=== PATIENT | male | born 1985 | race Caucasian/White ===

== ENCOUNTER 2019-10-23 11:04 | Inpatient (IN) | payer SELFPAY ==
[2019-10-23 11:08] VITALS: BP 140/104; PULSE 111; RESP 18; TEMP 37.3; O2SAT 95; BMI 34.2
--- NOTE | 2019-10-23 11:09 | ED_ITS ---
Entered by Poly Long, acting as scribe for Mariposa Berry HPI - Nausea/Vomiting/Diarrhea General: Chief complaint: Nausea/Vomiting/Diarrhea Stated complaint: SICK, NAUSEA, VOMIT X 2 DAYS Time Seen by Provider: 10/23/19 11:06 Source: patient and EMS Mode of arrival: EMS Limitations: no limitations History of Present Illness: HPI Narrative: 34 yo Male presents to ED with complaint of nausea and vomiting x 2 days. Pt states that he has been feeling weak and lethargic as well. Pt states that he drank a couple shots of whiskey last night so that he could get some rest. Pt states that this morning he started throwing up brown emesis. Pt states that he is not an alcoholic and will go periods without drinking but when he does drink, he binge drinks. MD elicited complaint: nausea, vomiting and abdominal pain Onset (ago): day(s) Description of vomiting: other (brown) Associated nausea: Yes Associated abdominal pain: Yes Location of pain: Diffuse Quality: cramping Exacerbating factors: vomiting Relieving factors: none Associated symtoms: Reports fatigue, malaise and nausea; Denies altered mental status, change in vision, chest pain, dizziness, dysuria, fecal incontinence, headache(s), palpitations or syncope Review of Systems General: Reports: other (negative unless marked) Const: Reports: fatigue and malaise Eyes: Denies: change in vision or blurry vision ENMT: Denies: throat pain, painful swallowing, hoarseness, ear pain, ear discharge, Change in hearing or nasal discharge Card: Denies: chest pain, palpitations, irregular heart rhythm, syncope, pre- syncope, shortness of breath on exertion or shortness of breath when lying down Resp: Denies: shortness of breath, productive cough, non-productive cough, wheezing, coughing up blood or chest congestion GI: Reports: nausea; Denies: fecal incontinence : Denies: painful urination Musc: Denies: neck pain, back pain, extremity pain, extremity swelling, joint pain, joint swelling, joint warmth or joint stiffness Skin/Breast: Denies: rash, skin tenderness or yellow skin Neuro: Denies: headache, numbness in extremities, weakness in extremities, changes in sensation, lack of coordination, difficulty walking, dizziness, vertigo or confusion Endo: Denies: excessive thirst, tired all the time, cold intolerance, excessive sweating, flushing or hot flashes Noah/Lymph: Denies: easy bruising, easy bleeding, petechiae or enlarged lymph nodes All/Imm: Denies: hives, throat swelling, tongue swelling, facial swelling or acute wheezing PFSH ED PFSH: Social History Smoking and tobacco status: current every day smoker cigarettes Packs smoked per day: 1 Years cigarettes smoked: 22 and smokeless tobacco Smokeless tobacco user: snuff Second hand smoke exposure: Yes Alcohol intake: current Alcohol intake frequency: 3 or more drinks per day Alcohol type: beer and hard liquor Lives independently: Yes Marital status: Current occupational status: student History of recent travel: No Current gender identity: Male Physical Exam Const: COMMON NORMALS: no apparent distress, oriented x3, no limitations, healthy appearing and well nourished EXAM LIMITATIONS: no altered mental status GENERAL APPEARANCE: cooperative, well kempt and well developed ORIENTATION/CONSCIOUSNESS: Yes awake HENMT: COMMON NORMALS: normocephalic, head/scalp atraumatic, hearing grossly normal bilaterally, external ears normal, EAC's normal, external nose normal and moist oral mucous membranes HEAD & SCALP: normal to inspection, normocephalic and atraumatic FACE & SINUS: normal facial exam and face symmetric NOSE: external nose normal and nares normal EXTERNAL EAR: Yes external ears normal EXTERNAL AUDITORY CANAL: EAC's normal MOUTH: oral and palatal mucosa normal and tongue normal Eye: COMMON NORMALS: PERRL, EOMs intact bilaterally, conjunctivae normal and no scleral icterus GENERAL EYE: normal appearance of both eyes and normal li ght reflex CONJUNCTIVA: Yes conjunctivae normal SCLERA: sclerae normal CORNEA: Yes corneas normal PUPIL: Yes PERRL DIRECT OPHTHALMOSCOPY: Yes normal light reflex Neck/C-Spine: COMMON NORMALS: full ROM, no lymphadenopathy, supple, no meningeal signs and no JVD GENERAL: Yes normal visual inspection and Yes trachea midline CERVICAL SPINE: Yes cervical ROM normal Chest: COMMONS NORMALS: inspection of chest normal and palpation of chest normal Resp: COMMON NORMALS: normal respiratory effort, no retractions, no use of accessory muscles and clear to auscultation bilaterally EFFORT & INSPECTION: Yes able to speak in complete sentences AUSCULTATION: clear to auscultation bilaterally Cardio: COMMON NORMALS: no JVD, regular rate, regular rhythm, S1 normal heart sound, S2 normal heart sound, no gallops, no clicks, no murmurs and no rub JUGULAR VENOUS DISTENTION: no JVD RATE: regular rate RHYTHM: regular rhythm HEART SOUNDS: S1 normal and S2 normal GI: COMMON NORMALS: soft to palpation, non-tender, no hepatosplenomegaly and no masses INSPECTION: Yes normal to inspection PALPATION: Yes soft and Yes no hepatosplenomegaly : COMMON NORMALS: Yes no CVA tenderness BLADDER/KIDNEY EXAM: Yes no CVA tenderness Back/Pelvis: COMMON NORMALS: no CVA tenderness, thoracic and lumbar spine normal to inspection, no thoracic nor lumbar tenderness and thoraco-lumbar ROM normal Extremity: COMMON NORMALS: normal to inspection, full ROM, normal capillary refill, no joint enlargement, no clubbing, cyanosis or edema and no calf tenderness Neuro: COMMON NORMALS: oriented x3, CN's II-XII intact bilaterally, moves all extremities, no focal motor deficits and no sensory deficits noted MENINGEAL SIGNS: Yes no meningeal signs Psych: COMMON NORMALS: mental status grossly normal, thought process normal, cooperative, affect normal, speech normal and activity/motor behavior normal APPEARANCE: Yes well kempt SPEECH: Yes normal speech THOUGHT PROCESS: normal thought process Skin: COMMON NORMALS: no rashes or lesions noted, skin turgor normal, no jaundice, no petechiae and no mottling GENERAL SKIN EXAM: no rashes or lesions noted and turgor normal Course Vital Signs: Vital signs: Vital Signs Temperature 99.2 F 10/23/19 11:08 Pulse Rate 111 H 10/23/19 11:08 Respiratory Rate 18 10/23/19 11:08 Blood Pressure 140/104 10/23/19 11:08 Pulse Oximetry 95 10/23/19 11:08 MDM - Nausea/Vomiting/Diarrhea MDM Narrative: Medical decision making narrative: Mr. Shelton is a 34-year-old male who is a binge drinker. He comes in with mild hematemesis. I believe this is likely due to a alcoholic gastritis. His hemoglobin is stable and his blood pressure is normal. He is not tachycardic. I reviewed the case in full with Dr. Ortega and he is agreeable to admission and we have consulted Dr. Baez's. They both agree he is stable for the floor. Lab Data: Attestation: I reviewed the patient's lab results. Labs: Lab Results 10/23/19 10/23/19 10/23/19 Range/Units 11:38 11:38 11:38 WBC 11.8 H (4.0-10.0) 10^3/ uL RBC 5.61 H (4.1-5.3) 10^6/u L Hgb 15.2 (11.7-16.6) g/dL Hct 46.6 (42.0-52.0) % MCV 83.1 (80-94) fL MCH 27.1 L (28.0-34.0) pg MCHC 32.6 (30.0-36.0) g/dL RDW 13.7 (12.1-15.1) % Plt Count 384 (130-400) 10^3/c mm MPV 10.0 (7.4-10.4) fL Neut % (Auto) 78.7 % Lymph % (Auto) 14.5 % Butts % (Auto) 6.0 % Eos % (Auto) 0.2 % Baso % (Auto) 0.3 % Neut # (Auto) 9.3 H (1.8-7.7) 10^3/u L Lymph # (Auto) 1.7 (0.8-4.8) 10^3/u L Butts # (Auto) 0.7 (0.2-0.9) 10^3/u L Eos # (Auto) 0.0 (0.0-0.8) 10^3/u L Baso # (Auto) 0.0 (0.0-0.1) 10^3/u L Nucleated RBC % (a uto) 0 % Nucleated RBCs # 0.0 /100WBC PT 13.50 H (10.5-13.3) SECO NDS INR 1.00 (0.8-1.2) APTT 27.7 (23.9-36.7) SECO NDS Specimen Type Sample Site ABG pH (7.35-7.45) ABG pCO2 (35-45) mmHg ABG pO2 (80.0-100.0) mmH g ABG HCO3 (22-26) mmol/L ABG Base Excess (-2.0-2.0) mmol/ L Oj Test Hematocrit (42-52) % O2 Delivery Device FiO2 % [employer] Developer ID Sodium 138 (136-145) mmol/L Potassium 4.0 (3.5-5.1) mmol/L Chloride 90 L (98-107) mmol/L Carbon Dioxide 21 L (22-29) mmol/L Anion Gap 31.0 H (5-19) BUN 16 (6-20) mg/dL Creatinine 1.1 (0.7-1.2) mg/dL GFR Calculation 76.6 L (90-130) mL/min Glucose 151 H (65-115) mg/dL Calculated Osmolal ity 285 (285-295) mOsm/k g Calcium 10.8 H (8.5-10.5) mg/dL Magnesium 2.5 H (1.7-2.3) mg/dL Total Bilirubin 0.5 (0.15-1.2) mg/dL AST 29 (0-40) U/L ALT 30 (0-41) U/L Alkaline Phosphata se 139 H (40-130) IU/L Creatine Kinase 203 (39-308) U/L Total Protein 9.3 H (6.6-8.7) g/dL Albumin 5.3 H (3.5-5.2) g/dL Globulin 4.0 (1.3-4.6) g/dL Lipase 44 (13-60) U/L Urine Color (Yellow) Urine Appearance (CLEAR) Urine pH (5-7) Ur Specific Gravit y (1.005-1.030) Urine Protein (Negative) Urine Glucose (UA) (Normal) Urine Ketones (Negative) Urine Blood (Negative) Urine Nitrate (Negative) Urine Bilirubin (NEGATIVE) Urine Urobilinogen (Negative) mg/dL Ur Leukocyte Yvonne ase (Negative) Urine RBC (0-2) /hpf Urine WBC (0-5) /hpf Ur Squamous Epith Cells (0-5) Other Crystals /hpf Urine Bacteria (NONE) Hyaline Casts Salicylates (3-10) mg/dL Urine Opiates Scre en (Negative) ng/mL Acetaminophen (10-30) ug/mL Ur Barbiturates Sc reen (Negative) ng/mL Ur Phencyclidine S crn (Negative) ng/mL Ur Amphetamines Sc reen (Negative) ng/mL U Benzodiazepines Scrn (Negative) ng/mL Urine Cocaine Scre en (Negative) ng/mL U Marijuana (THC) Screen (Negative) ng/mL Ethyl Alcohol 162 H (0-10) mg/dL Serum Ketones (Negative) 10/23/19 10/23/19 10/23/19 Range/Units 11:38 11:38 12:44 WBC (4.0-10.0) 10^3/ uL RBC (4.1-5.3) 10^6/u L Hgb (11.7-16.6) g/dL Hct (42.0-52.0) % MCV (80-94) fL MCH (28.0-34.0) pg MCHC (30.0-36.0) g/dL RDW (12.1-15.1) % Plt Count (130-400) 10^3/c mm MPV (7.4-10.4) fL Neut % (Auto) % Lymph % (Auto) % Butts % (Auto) % Eos % (Auto) % Baso % (Auto) % Neut # (Auto) (1.8-7.7) 10^3/u L Lymph # (Auto) (0.8-4.8) 10^3/u L Butts # (Auto) (0.2-0.9) 10^3/u L Eos # (Auto) (0.0-0.8) 10^3/u L Baso # (Auto) (0.0-0.1) 10^3/u L Nucleated RBC % (a uto) % Nucleated RBCs # /100WBC PT (10.5-13.3) SECO NDS INR (0.8-1.2) APTT (23.9-36.7) SECO NDS Specimen Type Arterial Sample Site Radial, right ABG pH 7.46 H (7.35-7.45) ABG pCO2 32.3 L (35-45) mmHg ABG pO2 81.0 (80.0-100.0) mmH g ABG HCO3 22.7 (22-26) mmol/L ABG Base Excess -0.4 (-2.0-2.0) mmol/ L Oj Test Pos Hematocrit 46.8 (42-52) % O2 Delivery Device Room air FiO2 21.0 % [employer] Developer ID [email or web address] Sodium (136-145) mmol/L Potassium (3.5-5.1) mmol/L Chloride (98-107) mmol/L Carbon Dioxide (22-29) mmol/L Anion Gap (5-19) BUN (6-20) mg/dL Creatinine (0.7-1.2) mg/dL GFR Calculation (90-130) mL/min Glucose (65-115) mg/dL Calculated Osmolal ity (285-295) mOsm/k g Calcium (8.5-10.5) mg/dL Magnesium (1.7-2.3) mg/dL Total Bilirubin (0.15-1.2) mg/dL AST (0-40) U/L ALT (0-41) U/L Alkaline Phosphata se (40-130) IU/L Creatine Kinase (39-308) U/L Total Protein (6.6-8.7) g/dL Albumin (3.5-5.2) g/dL Globulin (1.3-4.6) g/dL Lipase (13-60) U/L Urine Color (Yellow) Urine Appearance (CLEAR) Urine pH (5-7) Ur Specific Gravit y (1.005-1.030) Urine Protein (Negative) Urine Glucose (UA) (Normal) Urine Ketones (Negative) Urine Blood (Negative) Urine Nitrate (Negative) Urine Bilirubin (NEGATIVE) Urine Urobilinogen (Negative) mg/dL Ur Leukocyte Yvonne ase (Negative) Urine RBC (0-2) /hpf Urine WBC (0-5) /hpf Ur Squamous Epith Cells (0-5) Other Crystals /hpf Urine Bacteria (NONE) Hyaline Casts Salicylates < 0.3 L (3-10) mg/dL Urine Opiates Scre en (Negative) ng/mL Acetaminophen < 5.0 L (10-30) ug/mL Ur Barbiturates Sc reen (Negative) ng/mL Ur Phencyclidine S crn (Negative) ng/mL Ur Amphetamines Sc reen (Negative) ng/mL U Benzodiazepines Scrn (Negative) ng/mL Urine Cocaine Scre en (Negative) ng/mL U Marijuana (THC) Screen (Negative) ng/mL Ethyl Alcohol (0-10) mg/dL Serum Ketones Negative (Negative) 10/23/19 10/23/19 Range/Units 13:40 13:40 WBC (4.0-10.0) 10^3/ uL RBC (4.1-5.3) 10^6/u L Hgb (11.7-16.6) g/dL Hct (42.0-52.0) % MCV (80-94) fL MCH (28.0-34.0) pg MCHC (30.0-36.0) g/dL RDW (12.1-15.1) % Plt Count (130-400) 10^3/c mm MPV (7.4-10.4) fL Neut % (Auto) % Lymph % (Auto) % Butts % (Auto) % Eos % (Auto) % Baso % (Auto) % Neut # (Auto) (1.8-7.7) 10^3/u L Lymph # (Auto) (0.8-4.8) 10^3/u L Butts # (Auto) (0.2-0.9) 10^3/u L Eos # (Auto) (0.0-0.8) 10^3/u L Baso # (Auto) (0.0-0.1) 10^3/u L Nucleated RBC % (a uto) % Nucleated RBCs # /100WBC PT (10.5-13.3) SECO NDS INR (0.8-1.2) APTT (23.9-36.7) SECO NDS Specimen Type Sample Site ABG pH (7.35-7.45) ABG pCO2 (35-45) mmHg ABG pO2 (80.0-100.0) mmH g ABG HCO3 (22-26) mmol/L ABG Base Excess (-2.0-2.0) mmol/ L Oj Test Hematocrit (42-52) % O2 Delivery Device FiO2 % [employer] Developer ID Sodium (136-145) mmol/L Potassium (3.5-5.1) mmol/L Chloride (98-107) mmol/L Carbon Dioxide (22-29) mmol/L Anion Gap (5-19) BUN (6-20) mg/dL Creatinine (0.7-1.2) mg/dL GFR Calculation (90-130) mL/min Glucose (65-115) mg/dL Calculated Osmolal ity (285-295) mOsm/k g Calcium (8.5-10.5) mg/dL Magnesium (1.7-2.3) mg/dL Total Bilirubin (0.15-1.2) mg/dL AST (0-40) U/L ALT (0-41) U/L Alkaline Phosphata se (40-130) IU/L Creatine Kinase (39-308) U/L Total Protein (6.6-8.7) g/dL Albumin (3.5-5.2) g/dL Globulin (1.3-4.6) g/dL Lipase (13-60) U/L Urine Color Yellow (Yellow) Urine Appearance Hazy A (CLEAR) Urine pH 5 (5-7) Ur Specific Gravit y 1.010 (1.005-1.030) Urine Protein 2+ H (Negative) Urine Glucose (UA) Norm (Normal) Urine Ketones 1+ H (Negative) Urine Blood Neg (Negative) Urine Nitrate Negative (Negative) Urine Bilirubin Neg (NEGATIVE) Urine Urobilinogen Norm (Negative) mg/dL Ur Leukocyte Yvonne ase Negative (Negative) Urine RBC None (0-2) /hpf Urine WBC None (0-5) /hpf Ur Squamous Epith Cells 0-4 H (0-5) Other Crystals Amm biurate /hpf Urine Bacteria 1+ H (NONE) Hyaline Casts 0-4 H Salicylates (3-10) mg/dL Urine Opiates Scre en Negative (Negative) ng/mL Acetaminophen (10-30) ug/mL Ur Barbiturates Sc reen Negative (Negative) ng/mL Ur Phencyclidine S crn Negative (Negative) ng/mL Ur Amphetamines Sc reen Negative (Negative) ng/mL U Benzodiazepines Scrn Negative (Negative) ng/mL Urine Cocaine Scre en Negative (Negative) ng/mL U Marijuana (THC) Screen Negative (Negative) ng/mL Ethyl Alcohol (0-10) mg/dL Serum Ketones (Negative) Imaging Data^: CT Abd/Pel: Radiologist's impression: [address] [address] [address] Scan Report Signed Patient: Dexter Shelton #: [id number] : 1985Acct#:[id number] Age/Sex: 34 / MADM Date: 10/23/19 Loc: ERRoom/Bed: Attending Dr: Ordering Provider/Ordering MD: Mariposa Berry DO Date of Service: 10/23/19 Procedure(s): CT abdomen pelvis w con* [id number] Accession Number(s): [id number] Report Number: [id number] WS: [id number] CT scan of the abdomen and pelvis with IV contrast. Additional two-dimensional coronal and sagittal reconstruction was performed. 10/23/2019 Clinical Data: Abdominal Pain Comparison: None. DLP: 1534.[address] scans at [facility] use at least one of these dose optimization techniques: automated exposure control; mA and/or kV adjustment per patient size (includes targeted exams where dose is matched to clinical indication); or iterative reconstruction. Findings: The lower lungs show no nodules, masses or effusions. There is a small hiatal hernia. The gallbladder, spleen, adrenal glands and pancreas are normal. There is fatty infiltration of the liver. The kidneys show equal bilateral contrast excretion with a small right intrarenal cyst. No masses, hydronephrosis or renal calculi are seen.. The abdominal aorta is normal in size. No appendicitis or diverticulitis is seen. The stomach, small bowel and colon are unremarkable. No abscess, adenopathy, ascites, mass, obstruction or free air is seen. The bladder is unremarkable. No inguinal hernia is seen. The bones of the lower thorax, lumbar spine, pelvis, and hips are normal. CT/CT abdomen pelvis w con* [id number] Impression: Negative for acute intra-abdominal or pelvic abnormalities. Dictated By:Vivian Stiles MD Signed By:Vivian Stiles MDSigned Date/Time:10/23/19 1212 DD/ 1207 EKG Data^: EKG 1: Attestation: I personally reviewed and interpreted this EKG as follows: EKG interpretation date: 10/23/19 EKG interpretation time: 11:36 Interpretation: Normal sinus rhythm with a ventricular rate of 113, normal axis, no blocks, normal intervals, no acute ST or T wave changes. Discharge Plan Discharge Patient Disposition: Placed in Observation Clinical Impression: Alcohol abuse, Vomiting of blood, Abdominal pain Condition: Stable Prescriptions: No Action sertraline [Zoloft] 100 mg tablet 100 mg PO DAILY RF: 0 lisinopril 10 mg tablet 10 mg PO DAILY RF: 0 buspirone 10 mg tablet 10 mg PO BID PRN (Reason: Anxiety) RF: 0 omeprazole 20 mg capsule,delayed release(DR/EC) 20 mg PO DAILY RF: 0 albuterol sulfate [ProAir HFA] 90 mcg/actuation HFA aerosol inhaler 2 inh INHALATION Q6H PRN (Reason: Shortness Of Breath) RF: 0 Coding Level of Care Code ED Manager Wound for Chg Fwd Exam Comprehensive The documentation recorded by the Ethan joyner Carmen, accurately reflects the service I personally performed and the decisions made by Jamal vazquez Eli N
--- NOTE | 2019-10-23 11:12 | CT_ITS ---
WS: [id number] CT scan of the abdomen and pelvis with IV contrast. Additional two-dimensional coronal and sagittal reconstruction was performed. 10/23/2019 Clinical Data: Abdominal Pain Comparison: None. DLP: 1534.[address] scans at [facility] use at least one of these dose optimization techniques: automat ed exposure control; mA and/or kV adjustment per patient size (includes targeted exams where dose is matched to clinical indication); or iterative reconstruction. Findings: The lower lungs show no nodules, masses or effusions. There is a small hiatal hernia. The gallbladder, spleen, adrenal glands and pancreas are normal. There is fatty infiltration of the l iver. The kidneys show equal bilateral contrast excretion with a small right intrarenal cyst. No masses, hy dronephrosis or renal calculi are seen.. The abdominal aorta is normal in size. No appendicitis or diverticulitis is seen. The stomach, small bowel and colon are unremarkable. No ab scess, adenopathy, ascites, mass, obstruction or free air is seen. The bladder is unremarkable. No inguinal hernia is seen. The bones of the lower thorax, lumbar spine, pelvis, and hips are normal. CT/CT abdomen pelvis w con* [id number] Impression: Negative for acute intra-abdominal or pelvic abnormalities.
--- NOTE | 2019-10-23 11:14 | ECG_ITS ---
Measurements Intervals [place] Rate: 113 P: 73 NC: 129 QRS: 66 QRSD: 105 T: 64 QT: 358 QTc: 493 SINUS TACHYCARDIA ABNORMAL RHYTHM ECG No previous ECG available for comparison Electronically Signed On 10-24-2019 9:00:37 CDT by Juan Francisco Maritnez M.D. [email or web address]
[2019-10-23] MEDS: sodium chloride 0.9% 1,000 ML 999 ML IV (11:43)
[2019-10-23] MEDS: pantoprazole 40 mg SDV 80 MG IVP (11:44)
[2019-10-23] MEDS: ondansetron 2 mg/ML SDV 2 mL 8 MG IVP (11:44)
[2019-10-23] MEDS: pantoprazole 40 MG in sodium chloride 0.9% (plus) 100 ML 20 MG IV (11:46)
--- NOTE | 2019-10-23 11:50 | PC.NURSE ---
Physician requested to have the patients vomit tested for occult blood. test came back positive.
[2019-10-23 11:51] LABS: Basophils % 0.3 %; Eosinophils % 0.2 %; Hematocrit 46.6 % (42.0-52.0); Hemoglobin 15.2 g/dL (11.7-16.6); Lymphocytes # 1.7 10^3/uL (0.8-4.8); Lymphocytes % 14.5 %; Mean Corpuscular HGB Conc 32.6 g/dL (30.0-36.0); Mean Corpuscular Hemoglobin 27.1 pg (28.0-34.0); Mean Corpuscular Volume 83.1 fL (80-94); Monocytes # 0.7 10^3/uL (0.2-0.9); Neutrophils # 9.3 10^3/uL (1.8-7.7); Neutrophils % 78.7 %; Nucleated Red Blood Cells % 0 %; Platelet Count 384 10^3/cmm (130-400); Red Blood Count 5.61 10^6/uL (4.1-5.3); Red Cell Distribution Width 13.7 % (12.1-15.1); White Blood Count 11.8 10^3/uL (4.0-10.0)
[2019-10-23 11:54] LABS: Partial Thromboplastin Time 27.7 SECONDS (23.9-36.7)
[2019-10-23] MEDS: iohexol 300 mg/mL 100 mL Btl IV (11:56)
[2019-10-23 11:59] LABS: Alanine Aminotransferase 30 U/L (0-41); Albumin Level 5.3 g/dL (3.5-5.2); Alcohol Level 162 mg/dL (0-10); Alkaline Phosphatase 139 IU/L (40-130); Aspartate Amino Transferase 29 U/L (0-40); Blood Urea Nitrogen 16 mg/dL (6-20); Calcium 10.8 mg/dL (8.5-10.5); Carbon Dioxide 21 mmol/L (22-29); Chloride 90 mmol/L (98-107); Creatine Phosphokinase 203 U/L (39-308); Glomerular Filtration Rate 76.6 mL/min (90-130); Glucose 151 mg/dL (65-115); Lipase 44 U/L (13-60); Magnesium 2.5 mg/dL (1.7-2.3); Osmolality Calculated 285 mOsm/kg (285-295); Sodium 138 mmol/L (136-145); Total Bilirubin 0.5 mg/dL (0.15-1.2); Total Protein 9.3 g/dL (6.6-8.7)
[2019-10-23 12:23] LABS: Ketone (Acetest) Serum Negative (Negative)
[2019-10-23 12:43] LABS: Acetaminophen < 5.0 ug/mL (10-30); Salicylate < 0.3 mg/dL (3-10)
[2019-10-23 12:55] LABS: ABG PCO2 32.3 mmHg (35-45); ABG PH Result 7.46 (7.35-7.45); Arterial Blood Gas Hematocrit 46.8 % (42-52); Base Excess ABG -0.4 mmol/L (-2.0-2.0); Blood Gas Allen Test Pos; Blood Gas Operator Identificat amh; Blood Gas Sample Site Radial, right; Blood Gas Sample Type Arterial; HCO3 ABG 22.7 mmol/L (22-26); Oxygen Device ROOM AIR
[2019-10-23 14:13] LABS: Bilirubin Urine Neg (NEGATIVE); Blood Urine Neg (Negative); Glucose Urine UA Norm (Normal); Ketones Urine 1+ (Negative); Leukocyte Esterase Urine Negative (Negative); Nitrate Urine Negative (Negative); Protein Urine 2+ (Negative); Urine Appearance Hazy (CLEAR); Urine Color Yellow (Yellow); Urobilinogen Urine Norm (Negative); pH Urine 5 (5-7)
[2019-10-23 14:20] LABS: Bacteria Urine 1+; Other Crystals Urine AMM BIURATE /hpf; Squamous Epithelial Cell Urine 0-4 (0-5)
[2019-10-23 14:21] LABS: Add Urine Culture? No; Hyaline Casts Urine 0-4
[2019-10-23 14:22] LABS: Amphetamines Screen Urine Negative (Negative); Barbiturates Screen Urine Negative (Negative); Benzodiazepines Screen Urine Negative (Negative); Cocaine Screen Urine Negative (Negative); Opiate Screen Urine Negative (Negative); PCP Screen Urine Negative (Negative); THC Screen Urine Negative (Negative)
[2019-10-23] MEDS: LORazepam 2 mg/mL INJ 1 mL 1 MG IVP (14:23)
[2019-10-23 14:44] VITALS: BP 133/63; PULSE 88; RESP 18; O2SAT 100
--- NOTE | 2019-10-23 15:42 | P.CONIM_ITS ---
Providers/Reason For Consult Consulting Physican/Specialty*: Dr. Juarez General surgery Reason for Consult*: Hematemesis Attending Physician: Carrington Schaffer History of Present Illness History of Present Illness Lan Shelton is a 34 year old male apparently the patient has been vomiting over the past couple of days and allegedly there was blood in his vomitus patient is not sure, admits that he has been drinking a lot of alcohol over the past few days he was seen and evaluated by his nurse practitioner and was sent to the emergency department for further evaluation. He denies previous episodes or previous endoscopies and he said that he does not drink alcohol this is just recently that he has been starting to drink General surgery was consulted for further evaluation A CT scan of the abdomen and pelvis was done in the ER that showed: Negative for acute intra-abdominal or pelvic abnormalities. Review of Systems Const: Denies: fever, chills, body aches or malaise Card: Denies: chest pain Resp: Denies: shortness of breath GI: Denies: abdominal pain, nausea, vomiting, difficulty swallowing, diarrhea, constipation or blood in stool Neuro: Denies: headache Psych: Denies: anxiety or depression Meds/Allergies Home Medications and Allergies Home Medications Medication Instructions Recorded Confirmed Type albuterol sulfate 90 mcg/actuation 2 inh INHALATION Q4H PRN gm 10/23/19 10/23/19 History aerosol inhaler bismuth subsalicylate See Rx Instructions .ROUTE .COMPLEX 10/23/19 10/23/19 History [Pepto-Bismol To-Go] buspirone 10 mg tablet 10 mg PO BID PRN 10/23/19 10/23/19 History lisinopril 10 mg tablet 10 mg PO DAILY 10/23/19 10/23/19 History multivitamin [Multiple Vitamins] 1 tab PO DAILY 10/23/19 10/23/19 History naltrexone 50 mg PO DAILY 10/23/19 10/23/19 History omeprazole 20 mg capsule,delayed 20 mg PO DAILY 10/23/19 10/23/19 History release perphenazine 12 mg PO BEDTIME 10/23/19 10/23/19 History sertraline 100 mg tablet 100 mg PO DAILY 10/23/19 10/23/19 History Allergies Allergy/AdvReac Type Severity Reaction Status Date / Time Penicillins Allergy Unknown Verified 10/23/19 15:44 Current Medications Current Medications Generic Name Dose Route Start Last Admin Trade Name Freq PRN Reason Stop Dose Admin Pantoprazole Sodium 40 mg/ 100 mls @ 20 mls/hr 10/23/19 11:12 10/23/19 11:46 Sodium Chloride IV 10/23/19 16:11 8 mg/hr .Q5H ONE 20 mls/hr Administration 8 MG/HR PFSH Acute PFSH: Medical History (Updated 10/23/19 @ 16:32 by Carrington Schaffer MD) Anxiety and depression Asthma GERD (gastroesophageal reflux disease) Hypertension Surgical History No history of previous surgery Family History Other Healthy adult Social History Smoking and tobacco status: current every day smoker cigarettes Packs smoked per day: 1 Years cigarettes smoked: 22 and smokeless tobacco Smokeless tobacco user: snuff Second hand smoke exposure: Yes Alcohol intake: current Alcohol intake frequency: 3 or more drinks per day Alcohol type: beer and hard liquor Lives independently: Yes Marital status: Current occupational status: student History of recent travel: No Current gender identity: Male Vitals/I&O/Wt Last Vital Signs Temp 99.2 F 10/23/19 11:08 Pulse 88 10/23/19 14:44 Resp 18 10/23/19 14:44 BP 133/63 10/23/19 14:44 Pulse Ox 100 10/23/19 14:44 Weight last 48 hrs Weight 225 lb Physical Exam Const: COMMON NORMALS: no apparent distress and oriented x3 GENERAL APPEARANCE: cooperative ORIENTATION/CONSCIOUSNESS: Yes awake, Yes oriented to person, Yes oriented to place and Yes oriented to time HENMT: COMMON NORMALS: normocephalic HEAD & SCALP: normocephalic Eye: COMMON NORMALS: PERRL and no scleral icterus PUPIL: Yes PERRL Lymph: LYMPHATIC: no lymphadenopathy noted Chest: COMMONS NORMALS: inspection of chest normal Resp: COMMON NORMALS: normal respiratory effort and clear to auscultation bilaterally AUSCULTATION: clear to auscultation bilaterally Cardio: COMMON NORMALS: S1 normal heart sound and S2 normal heart sound; negative for no murmurs HEART SOUNDS: S1 normal and S2 normal GI: COMMON NORMALS: soft to palpation; negative for no hepatosplenomegaly INSPECTION: Yes normal to inspection PALPATION: Yes soft, No firm, No tender, No guarding, No rigid and No no hepatosplenomegaly Neuro: COMMON NORMALS: oriented x3 SENSORIUM/ORIENTATION: Yes oriented to person, Yes oriented to place and Yes oriented to time Skin: COMMON NORMALS: no rashes or lesions noted GENERAL SKIN EXAM: no rashes or lesions noted A&P Assessment and plan (1) Vomiting of blood: Plan of care; After thorough history and physical examination and reviewing the chart, plan to perform a diagnostic esophagogastroduodenoscopy and possible biopsy in the GI lab. Informed consent per chart were,Indications, risks, benefits, and alternatives were all discussed with the patient and did agree to proceed. Patient can have clear liquid diet now and n.p.o. after midnight Status: Acute Qualifiers: Nausea presence: with nausea Qualified Code(s): K92.0 - Hematemesis Code(s): K92.0 - Hematemesis Consult Attestations Medical Necessity Statement: Per hospitalist service Time Spent in Patient Care: 16 - 35 minutes (>than 50% of time spent in counselling and/or direct pt care on unit) . Coding Level of Care Code Acute Facing Baster for g Fwd Exam Comprehensive Diagnoses Vomiting of blood K92.0 Nausea presence: with nausea
--- NOTE | 2019-10-23 15:55 | P.PN_ITS ---
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
[2019-10-23 16:00] VITALS: BP 154/77; PULSE 106; RESP 20; TEMP 36.7; O2SAT 94
--- NOTE | 2019-10-23 16:05 | P.HP_ITS ---
Providers/Chief Complaint Admitting Physician: Carrington Schaffer Chief Complaint: SICK, NAUSEA, VOMIT X 2 DAYS History of Present Illness Lan Shelton is a 34 year old male with history of longstanding GERD, with EGD about 3 years ago, with binge drinking, current smoker of 1 pack/day, but denies history of cirrhosis, or varices seen on EGD, presented to the emergency department due to recurrent episodes of vomiting since last night, and says has vomited multiple times, including this morning in ER with streaks of blood seen in the vomitus. No blood present in first emesis episode, and he denies coffee- ground contents. His hemoglobin is 15. He denies hematochezia or melanotic stools. In ER he is also noted to have withdrawal from alcohol. Last drink was yesterday, and he does say that he had purchased 30 pack and half a gallon of liquor, although says did not finish everything. He gives history of drinking large amounts mostly on weekends. He does report history of alcohol withdrawal which was severe with hallucinations suspicious for DT. He is currently somewhat anxious, tremulous, when he closes his eyes he does have some strange visual symptoms, but denies alex hallucinations. Denies history of seizure. CT abdomen pelvis in ER unremarkable. Review of Systems Const: Denies: fever, chills, body aches or malaise Eyes: Denies: change in vision or eye redness ENMT: Denies: throat pain, oral sores/lesions or ear pain Card: Denies: chest pain, edema, pre-syncope or shortness of breath on exertion Resp: Denies: shortness of breath, productive cough, change in phlegm color or coughing up blood GI: Reports: nausea and vomiting; Denies: abdominal pain, diarrhea, constipation, blood in stool or black tarry stool : Denies: flank pain, difficulty urinating, urinary frequency or blood in urine Musc: Denies: back pain, joint swelling or redness Skin/Breast: Denies: rash, sores or new lesion Neuro: Denies: headache, numbness in extremities, weakness in extremities, dizziness, confusion or seizure-like activity Psych: Reports: anxiety Endo: Denies: excessive urination or excessive thirst Noah/Lymph: Denies: easy bleeding or purpura All/Imm: Denies: hives, throat swelling or tongue swelling Medications/Allergies Home Medications Medication Instructions Recorded Confirmed Last Taken Type bismuth subsalicylate See Rx Instructions .ROUTE .COMPLEX 10/23/19 10/23/19 10/22/19 History [Pepto-Bismol To-Go] multivitamin [Multiple Vitamins] 1 tab PO DAILY 10/23/19 10/23/19 10/20/19 H istory naltrexone 50 mg PO DAILY 10/23/19 10/23/19 Unknown History perphenazine 12 mg PO BEDTIME 10/23/19 10/23/19 Unknown History Allergies Allergy/AdvReac Type Severity Reaction Status Date / Time Penicillins Allergy Unknown Verified 10/23/19 15:44 PFSH Acute PFSH: Medical History (Updated 10/23/19 @ 16:32 by Carrington Schaffer MD) Anxiety and depression Asthma GERD (gastroesophageal reflux disease) Hypertension Surgical History No history of previous surgery Family History Other Healthy adult Social History Smoking and tobacco status: current every day smoker cigarettes Packs smoked per day: 1 Years cigarettes smoked: 22 and smokeless tobacco Smokeless tobacco user: snuff Second hand smoke exposure: Yes Alcohol intake: current Alcohol intake frequency: 3 or more drinks per day Alcohol type: beer and hard liquor Lives independently: Yes Marital status: Current occupational status: student History of recent travel: No Current gender identity: Male Vitals/I&O/Wt Last Vital Signs Temp 99.2 F 10/23/19 11:08 Pulse 88 10/23/19 14:44 Resp 18 10/23/19 14:44 BP 133/63 10/23/19 14:44 Pulse Ox 100 10/23/19 14:44 Weight last 48 hrs Weight 102.058 kg Physical Exam Const: COMMON NORMALS: no apparent distress and oriented x3 GENERAL APPEARANCE: anxious (But pleasant and cooperative. Lucid.) OTHER: With mild resting tremor. HENMT: COMMON NORMALS: oropharynx normal Neck/C-Spine: COMMON NORMALS: no JVD Resp: COMMON NORMALS: normal respiratory effort and clear to auscultation bilaterally AUSCULTATION: clear to auscultation bilaterally Cardio: COMMON NORMALS: no JVD, regular rhythm, S1 normal heart sound, S2 normal heart sound and no murmurs RHYTHM: regular rhythm HEART SOUNDS: S1 normal and S2 normal GI: COMMON NORMALS: normal to inspection, nondistended, normoactive bowel sounds, soft to palpation and non-tender PALPATION: Yes soft Extremity: COMMON NORMALS: no joint enlargement and no pedal edema Neuro: COMMON NORMALS: oriented x3 and moves all extremities Skin: COMMON NORMALS: no rashes or lesions noted GENERAL SKIN EXAM: no rashes or lesions noted Data : 10/23/19 11:38 10/23/19 11:38 A&P Assessment and plan (1) Vomiting of blood: Suspected alcohol induced gastritis with vomiting. Noted blood in vomitus, with history of long standing GERD, but denies varices on past EGD. Is a current smoker. Denies NSAIDs. Discussed with him regarding concern of alcohl consumption as well as smoking leading to recurrence of symptoms and risk of malignancy. He verbalized understanding. PPI IV. Bowel rest. Appreciate surgery recommendations. Status: Acute Qualifiers: Nausea presence: with nausea Qualified Code(s): K92.0 - Hematemesis Code(s): K92.0 - Hematemesis (2) Alcohol withdrawal: Monitor for withdrawal, supportive care according to [facility] protocol. Timing, folic acid, multivitamin. Status: Acute Code(s): F10.239 - Alcohol dependence with withdrawal, unspecified Attestations Medical Necessity Statement*: Place in observation. Coding Level of Care Code Acute [facility] [employer] Specialist [facility] Fwd Diagnoses Vomiting of blood K92.0 Nausea presence: with nausea Alcohol withdrawal F10.239
[2019-10-23] MEDS: LORazepam 2 mg/mL INJ 1 mL IM (18:22)
[2019-10-23] MEDS: folic acid 1 MG, multivitamin inj 10 ML, thiamine 100 MG in sodium chloride 0.9% 1,000 ML 252.8 MG IV (18:28)
[2019-10-23 18:32] VITALS: PULSE 103; RESP 18; O2SAT 95
[2019-10-23] MEDS: sodium chloride 0.9% 1,000 ML 100 ML IV (19:30)
[2019-10-23 20:00] VITALS: BP 141/78; PULSE 88; RESP 19; TEMP 36.5; O2SAT 95
[2019-10-23 20:11] VITALS: PULSE 103; RESP 18; O2SAT 97
[2019-10-23] MEDS: perphenazine 4 mg Tablet 12 MG PO (20:53)
[2019-10-23] MEDS: LORazepam 2 mg Tablet PO (20:53)
[2019-10-24] VITALS (10 sets, daily range): BP systolic 121–163; BP diastolic 75–104; PULSE 68–97; RESP 16–24; TEMP 36.7–37.4; O2SAT 94–99
[2019-10-24 06:55] LABS: Basophils % 0.4 %; Eosinophils # 0.1 10^3/uL (0.0-0.8); Hemoglobin 12.6 g/dL (11.7-16.6); Lymphocytes # 1.7 10^3/uL (0.8-4.8); Lymphocytes % 23.7 %; Mean Corpuscular HGB Conc 31.5 g/dL (30.0-36.0); Mean Corpuscular Hemoglobin 28.3 pg (28.0-34.0); Mean Corpuscular Volume 89.9 fL (80-94); Mean Platelet Volume 10.5 fL (7.4-10.4); Monocytes # 0.5 10^3/uL (0.2-0.9); Monocytes % 7.4 %; Neutrophils # 4.7 10^3/uL (1.8-7.7); Neutrophils % 67.4 %; Nucleated Red Blood Cells % 0 %; Platelet Count 190 10^3/cmm (130-400); Red Blood Count 4.45 10^6/uL (4.1-5.3); Red Cell Distribution Width 13.6 % (12.1-15.1)
[2019-10-24 07:14] LABS: Alanine Aminotransferase 19 U/L (0-41); Alkaline Phosphatase 112 IU/L (40-130); Anion Gap 20.9 (5-19); Aspartate Amino Transferase 20 U/L (0-40); Blood Urea Nitrogen 18 mg/dL (6-20); Calcium 9.6 mg/dL (8.5-10.5); Carbon Dioxide 26 mmol/L (22-29); Chloride 97 mmol/L (98-107); Globulin 3.2 g/dL (1.3-4.6); Glomerular Filtration Rate 85.5 mL/min (90-130); Glucose 113 mg/dL (65-115); Osmolality Calculated 287 mOsm/kg (285-295); Potassium 3.9 mmol/L (3.5-5.1); Sodium 140 mmol/L (136-145); Total Bilirubin 0.8 mg/dL (0.15-1.2)
[2019-10-24 07:25] LABS: Total Protein 7.2 g/dL (6.6-8.7)
[2019-10-24] MEDS: sodium chloride 0.9% 1,000 ML 100 ML IV ×2 (08:37→18:50)
--- NOTE | 2019-10-24 10:44 | P.PN_ITS ---
Subjective Subjective: Interval history: Overall feels well No acute events overnight and no hematemesis Vitals/I&O/Wt Last Vital Signs Temp 98.4 F 10/24/19 07:46 Pulse 84 10/24/19 07:46 Resp 20 H 10/24/19 07:46 BP 132/82 10/24/19 07:46 Pulse Ox 97 10/24/19 07:46 10/23/19 10/24/19 10/24/19 22:59 06:59 14:59 Intake Total 100 / 100 950 / 1050 Balance 100 / 100 950 / 1050 Weight last 48 hrs Weight 225 lb Physical Exam Narrative: EXAM NARRATIVE: Patient is conscious alert oriented X3 BMI 34 Head and neck examination PERRLA no masses no cervical lymphadenopathy no jaundice Abdomen nontender nondistended soft no organomegaly guarding or rigidity/no signs of peritonitis Data : 10/24/19 06:36 10/24/19 06:36 A&P Assessment and plan (1) Vomiting of blood: Plan of care; After thorough history and physical examination and reviewing the chart, plan to perform a diagnostic esophagogastroduodenoscopy and possible biopsy in the GI lab today Informed consent per chart were,Indications, risks, benefits, and alternatives were all discussed with the patient and did agree to proceed. Status: Acute Qualifiers: Nausea presence: with nausea Qualified Code(s): K92.0 - Hematemesis Code(s): K92.0 - Hematemesis Attestations Medical Necessity Statement*: Per hospitalist service Time Spent in Patient Care: 16 - 35 minutes (>than 50% of time spent in counselling and/or direct pt care on unit) . 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
[2019-10-24] MEDS: sodium chloride 0.9% 1,000 ML 30 ML IV (10:55)
--- NOTE | 2019-10-24 12:11 | ANES.PREANE2 ---
Pre-Anesthetic Assessment Pre-Anesthetic Assessment: Height/Weight: Height 1.73 m Weight 102.058 kg Temp Pulse Resp BP Pulse Ox 99.3 F 86 18 148/104 96 10/24/19 10:40 10/24/19 10:40 10/24/19 10:40 10/24/19 10:40 10/24/19 10:40 Preop Diagnosis: Hematemesis Proposed Procedure: Operation Date: 10/24/19 10:45 Proposed Procedures p EGD(Not Applicable) - Shay Juarez MD Was Beta Kaleb taken within 24 hours: N/A Last intake: Intake Last Liquid Date 10/23/19 Last Liquid Time 18:30 Last Solid Date 10/23/19 Last Solid Time 02:00 Social: Social History: Alcohol (heavy binge drinker) and Tobacco (1ppd) Exam: Pre-Anes Outpt Exam: alert, oriented x 3 and regular rate & rhythm Airway: Submandibular: WNL Cervical ROM: WNL MP: 2 (huitron) Dentition: Full History/ROS: No significant history except as noted and No significant complaints Pulmonary: Pulmonary: Asthma CV/HEM: CV/HEM: HTN : : None reported Hepatic: Comments: heavy ETOH abuse GI: GI: GERD Comments: controlled when taking prilosec Metabolic: Metabolic: Morbid obesity Musc/skel: Musc/skel: None reported Neuropsych: Neuropsych: Anxiety and Depression Anesthetic Plan: ASA status: 3 Anesthesia: MAC Meds/Allergies Current Medications: Current Medications Generic Name Dose Route Start Last Admin Trade Name Freq PRN Reason Stop Dose Admin Sodium Chloride 1,000 mls @ 100 m ls/hr 10/23/19 11:15 10/24/19 08:37 Sodium Chloride 0.9% IV 100 mls/hr .Q10H DORETHA Administration Sodium Chloride 1,000 mls @ 30 ml s/hr 10/24/19 11:15 10/24/19 10:55 Sodium Chloride 0.9% IV 30 mls/hr .Q24H DORETHA Administration Lorazepam 2 mg 10/23/19 17:06 10/23/19 18:22 Ativan IM 2 mg PROTOCOL PRN Administration ALCOWD Protocol Lorazepam 2 mg 10/23/19 17:06 10/23/19 20:53 Ativan PO 2 mg PROTOCOL PRN Administration WITHDRAWAL Protocol Perphenazine 12 mg 10/23/19 21:00 10/23/19 20:53 Trilafon PO 12 mg BEDTIME DORETHA Administration PFSH Anesthesia PFSH: Medical History (Updated 10/23/19 @ 16:32 by Carrington Schaffer MD) Anxiety and depression Asthma GERD (gastroesophageal reflux disease) Hypertension Surgical History No history of previous surgery Family History Other Healthy adult Social History Smoking and tobacco status: current every day smoker cigarettes Packs smoked per day: 1 Years cigarettes smoked: 22 and smokeless tobacco Smokeless tobacco user: snuff Second hand smoke exposure: Yes Alcohol intake: current Alcohol intake frequency: 3 or more drinks per day Alcohol type: beer and hard liquor Lives independently: Yes Marital status: Current occupational status: student History of recent travel: No Current gender identity: Male Data Anesthesia CBC & Chem 7: 10/24/19 06:36 10/24/19 06:36 Other Labs: Laboratory Results - last 48 hr 10/23/19 10/23/19 10/23/19 11:38 11:38 11:38 WBC 11.8 H RBC 5.61 H Hgb 15.2 Hct 46.6 MCV 83.1 MCH 27.1 L MCHC 32.6 RDW 13.7 Plt Count 384 MPV 10.0 Neut % (Auto) 78.7 Lymph % (Auto) 14.5 [place] % (Auto) 6.0 Eos % (Auto) 0.2 Baso % (Auto) 0.3 Neut # (Auto) 9.3 H Lymph # (Auto) 1.7 [place] # (Auto) 0.7 Eos # (Auto) 0.0 Baso # (Auto) 0.0 Nucleated RBC % (auto) 0 Nucleated RBCs # 0.0 PT 13.50 H INR 1.00 APTT 27.7 Specimen Type Sample Site ABG pH ABG pCO2 ABG pO2 ABG HCO3 ABG Base Excess Oj Test Hematocrit O2 Delivery Device FiO2 Livestock Nutritionist ID Sodium 138 Potassium 4.0 Chloride 90 L Carbon Dioxide 21 L Anion Gap 31.0 H BUN 16 Creatinine 1.1 GFR Calculation 76.6 L Glucose 151 H Calculated Osmolality 285 Calcium 10.8 H Magnesium 2.5 H Total Bilirubin 0.5 AST 29 ALT 30 Alkaline Phosphatase 139 H Creatine Kinase 203 Total Protein 9.3 H Albumin 5.3 H Globulin 4.0 Lipase 44 Urine Color Urine Appearance Urine pH Ur Specific [place] Urine Protein Urine Glucose (UA) Urine Ketones Urine Blood Urine Nitrate Urine Bilirubin Urine Urobilinogen Ur Leukocyte Esterase Urine RBC Urine WBC Ur Squamous Epith Cells Other Crystals Urine Bacteria Hyaline Casts Salicylates Urine Opiates Screen Acetaminophen Ur Barbiturates Screen Ur Phencyclidine Scrn Ur Amphetamines Screen U Benzodiazepines Scrn Urine Cocaine Screen U Marijuana (THC) Screen Ethyl Alcohol 162 H Serum Ketones 10/23/19 10/23/19 10/23/19 11:38 11:38 12:44 WBC RBC Hgb Hct MCV MCH MCHC RDW Plt Count MPV Neut % (Auto) Lymph % (Auto) [place] % (Auto) Eos % (Auto) Baso % (Auto) Neut # (Auto) Lymph # (Auto) [place] # (Auto) Eos # (Auto) Baso # (Auto) Nucleated RBC % (auto) Nucleated RBCs # PT INR APTT Specimen Type Arterial Sample Site Radial, right ABG pH 7.46 H ABG pCO2 32.3 L ABG pO2 81.0 ABG HCO3 22.7 ABG Base Excess -0.4 Oj Test Pos Hematocrit 46.8 O2 Delivery Device Room air FiO2 21.0 Livestock Nutritionist ID amh Sodium Potassium Chloride Carbon Dioxide Anion Gap BUN Creatinine GFR Calculation Glucose Calculated Osmolality Calcium Magnesium Total Bilirubin AST ALT Alkaline Phosphatase Creatine Kinase Total Protein Albumin Globulin Lipase Urine Color Urine Appearance Urine pH Ur Specific [place] Urine Protein Urine Glucose (UA) Urine Ketones Urine Blood Urine Nitrate Urine Bilirubin Urine Urobilinogen Ur Leukocyte Esterase Urine RBC Urine WBC Ur Squamous Epith Cells Other Crystals Urine Bacteria Hyaline Casts Salicylates < 0.3 L Urine Opiates Screen Acetaminophen < 5.0 L Ur Barbiturates Screen Ur Phencyclidine Scrn Ur Amphetamines Screen U Benzodiazepines Scrn Urine Cocaine Screen U Marijuana (THC) Screen Ethyl Alcohol Serum Ketones Negative 10/23/19 10/23/19 10/24/19 13:40 13:40 06:36 WBC 7.0 RBC 4.45 Hgb 12.6 Hct 40.0 L MCV 89.9 D MCH 28.3 MCHC 31.5 RDW 13.6 Plt Count 190 MPV 10.5 H Neut % (Auto) 67.4 Lymph % (Auto) 23.7 [place] % (Auto) 7.4 Eos % (Auto) 1.0 Baso % (Auto) 0.4 Neut # (Auto) 4.7 Lymph # (Auto) 1.7 [place] # (Auto) 0.5 Eos # (Auto) 0.1 Baso # (Auto) 0.0 Nucleated RBC % (auto) 0 Nucleated RBCs # 0.0 PT INR APTT Specimen Type Sample Site ABG pH ABG pCO2 ABG pO2 ABG HCO3 ABG Base Excess Oj Test Hematocrit O2 Delivery Device FiO2 Livestock Nutritionist ID Sodium Potassium Chloride Carbon Dioxide Anion Gap BUN Creatinine GFR Calculation Glucose Calculated Osmolality Calcium Magnesium Total Bilirubin AST ALT Alkaline Phosphatase Creatine Kinase Total Protein Albumin Globulin Lipase Urine Color Yellow Urine Appearance Hazy A Urine pH 5 Ur Specific [place] 1.010 Urine Protein 2+ H Urine Glucose (UA) Norm Urine Ketones 1+ H Urine Blood Neg Urine Nitrate Negative Urine Bilirubin Neg Urine Urobilinogen Norm Ur Leukocyte Esterase Negative Urine RBC None Urine WBC None Ur Squamous Epith Cells 0-4 H Other Crystals Amm biurate Urine Bacteria 1+ H Hyaline Casts 0-4 H Salicylates Urine Opiates Screen Negative Acetaminophen Ur Barbiturates Screen Negative Ur Phencyclidine Scrn Negative Ur Amphetamines Screen Negative U Benzodiazepines Scrn Negative Urine Cocaine Screen Negative U Marijuana (THC) Screen Negative Ethyl Alcohol Serum Ketones 10/24/19 06:36 WBC RBC Hgb Hct MCV MCH MCHC RDW Plt Count MPV Neut % (Auto) Lymph % (Auto) [place] % (Auto) Eos % (Auto) Baso % (Auto) Neut # (Auto) Lymph # (Auto) [place] # (Auto) Eos # (Auto) Baso # (Auto) Nucleated RBC % (auto) Nucleated RBCs # PT INR APTT Specimen Type Sample Site ABG pH ABG pCO2 ABG pO2 ABG HCO3 ABG Base Excess Oj Test Hematocrit O2 Delivery Device FiO2 Livestock Nutritionist ID Sodium 140 Potassium 3.9 Chloride 97 L Carbon Dioxide 26 Anion Gap 20.9 H BUN 18 Creatinine 1.0 GFR Calculation 85.5 L Glucose 113 Calculated Osmolality 287 Calcium 9.6 Magnesium Total Bilirubin 0.8 AST 20 ALT 19 Alkaline Phosphatase 112 Creatine Kinase Total Protein 7.2 D Albumin 4.0 Globulin 3.2 Lipase Urine Color Urine Appearance Urine pH Ur Specific [place] Urine Protein Urine Glucose (UA) Urine Ketones Urine Blood Urine Nitrate Urine Bilirubin Urine Urobilinogen Ur Leukocyte Esterase Urine RBC Urine WBC Ur Squamous Epith Cells Other Crystals Urine Bacteria Hyaline Casts Salicylates Urine Opiates Screen Acetaminophen Ur Barbiturates Screen Ur Phencyclidine Scrn Ur Amphetamines Screen U Benzodiazepines Scrn Urine Cocaine Screen U Marijuana (THC) Screen Ethyl Alcohol Serum Ketones Cardiac Studies: No Data to Display
--- NOTE | 2019-10-24 12:46 | ANE.PACU2 ---
 Inpatient post-anesthesia follow up: Airway intact: Yes Vital signs: Temperature 98.7 F Pulse Rate [Monito r] 111 Pulse Rate 90 Respiratory Rate 16 Blood Pressure [Ri ght Arm] 140/104 Blood Pressure 121/83 Pulse Oximetry 99 Oxygen Delivery Me thod Nasal Cannula Oxygen Flow Rate 4 Fraction of Inspir ed Oxygen Hydration adequate: Yes Nausea and vomiting: No Pain level: 1 Mental status: Baseline
--- NOTE | 2019-10-24 13:12 | PC.CHAP ---
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 [] Patient/Family/Request visit [] Outpatient visit [] Follow-up visit [] Physician referral [] Code/Alert [x] Routine visit [] Staff referral [] Actively dying [] Patient sleeping [] Family support [] [] Out of room [] Palliative care [] [] Receiving care in room [] Pre-surgical visit [] Trauma [] Long length of stay [] ICU visit [] Other: Relational/Emotional Strength [x] Patient feels connected with others/family/visitors/staff [] Distress [] Loneliness/isolation [] Abandonment Spirituality of Patient [] Person of Elodia [] Attends Nondenominational of their Elodia [] Believes in Prayer [] Reads Bible or Jew materials [] There are Spiritual issues to be addressed Rail Signal Designer Interventions [x 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 [] Patient/Family/Request visit [] Outpatient visit [] Follow-up visit [] Physician referral [] Code/Alert [] Routine visit [] Staff referral [] Actively dying [] Patient sleeping [] Family support [] [] Out of room [] Palliative care [] [] Receiving care in room [] Pre-surgical visit [] Trauma [] Long length of stay [] ICU visit [] Other: Relational/Emotional Strength [] Patient feels connected with others/family/visitors/staff [] Distress [] Loneliness/isolation [] Abandonment Spirituality of Patient [] Person of Elodia [] Attends Nondenominational of their Elodia [] Believes in Prayer [] Reads Bible or Jew materials [] There are Spiritual issues to be addressed Rail Signal Designer Interventions [] Prayer [] Active listening [] Non-anxious presence [] Spiritual/emotional support [] Crisis/trauma care [] Spiritual counseling [] Bereavement support [] Provided bereavement packet [] Provided Bible/devotional materials [] Provided toy/stuffed animal, coloring book to patient or family member [] Provided Communion [] Anointing/[place] [] Salvation [] Completed spiritual assessment [] Other: Impact on Illness or Injury [] Angry [] Fearful [] Anxious [] Often cries [] Exhaustion [] Unable to work [] Unable to attend confucianist [] Unable to walk/stand [] Unable to read [] Unable to drive [] Unable to eat/drink [] Unable to sleep [] Unable to be with family [] Patient intubated [] Other: Summary Time spent with patient ] Prayer [] Active listening [] Non-anxious presence [] Spiritual/emotional support [] Crisis/trauma care [] Spiritual counseling [] Bereavement support [] Provided bereavement packet [] Provided Bible/devotional materials [] Provided toy/stuffed animal, coloring book to patient or family member [] Provided Communion [] Anointing/[place] [] Salvation [] Completed spiritual assessment [] Other: Impact on Illness or Injury [] Angry [] Fearful [] Anxious [] Often cries [] Exhaustion [] Unable to work [] Unable to attend confucianist [] Unable to walk/stand [] Unable to read [] Unable to drive [] Unable to eat/drink [] Unable to sleep [] Unable to be with family [] Patient intubated [] Other: Summary Time spent with patient
[2019-10-24] MEDS: nicotine 21 mg Patch 1 PATCH TRANSDERMA (13:18)
[2019-10-24] MEDS: sertraline 100 mg Tablet PO (13:20)
[2019-10-24] MEDS: thiamine 100 mg Tablet PO (13:20)
[2019-10-24] MEDS: BuSPIRONE 10 mg Tablet PO (14:31)
[2019-10-24] MEDS: lisinopril 10 mg Tablet PO (15:13)
--- NOTE | 2019-10-24 18:47 | PC.ADMIT ---
[address] [place] [facility] Admission Note: The patient,Lan Shelton,34 y/o, was given written information regarding hospital policies, unit procedures and contact persons. Patient's smoking status: current every day smoker. Vital Signs - 8 hr 10/24/19 12:40 10/24/19 12:49 10/24/19 16:09 Temperature 98.7 F Pulse Rate 90 96 87 Respiratory Rate 16 18 18 Blood Pressure 121/83 158/88 Pulse Oximetry 99 97 98 10/24/19 16:18 Temperature 98.6 F Pulse Rate 97 Respiratory Rate 20 H Blood Pressure 151/87 Pulse Oximetry 96
[2019-10-24] MEDS: LORazepam 2 mg Tablet PO (18:48)
--- NOTE | 2019-10-24 20:38 | P.PN_ITS ---
Subjective Subjective: Interval history: He is anxious, tremulous, reports feeling eyes are somewhat glazed over . Denies hallucinations. Denies any further vomiting. No abdominal pain. Tolerated procedure well. Vitals/I&O/Wt Last Vital Signs Temp 98.6 F 10/24/19 16:18 Pulse 97 10/24/19 16:18 Resp 20 H 10/24/19 16:18 BP 151/87 10/24/19 16:18 Pulse Ox 96 10/24/19 16:18 10/24/19 10/24/19 10/24/19 06:59 14:59 22:59 Intake Total 950 / 1050 200 / 200 450 / 650 Balance 950 / 1050 200 / 200 450 / 650 Weight last 48 hrs Weight 102.058 kg Physical Exam Const: COMMON NORMALS: no apparent distress and oriented x3 GENERAL APPEARANCE: anxious (But pleasant and cooperative. Lucid.) OTHER: Resting tremor. HENMT: COMMON NORMALS: oropharynx normal Neck/C-Spine: COMMON NORMALS: no JVD Resp: COMMON NORMALS: normal respiratory effort and clear to auscultation bilaterally AUSCULTATION: clear to auscultation bilaterally Cardio: COMMON NORMALS: no JVD, regular rhythm, S1 normal heart sound, S2 normal heart sound and no murmurs RHYTHM: regular rhythm HEART SOUNDS: S1 normal and S2 normal GI: COMMON NORMALS: normal to inspection, nondistended, normoactive bowel sounds, soft to palpation and non-tender PALPATION: Yes soft Extremity: COMMON NORMALS: no joint enlargement and no pedal edema Neuro: COMMON NORMALS: oriented x3 and moves all extremities Skin: COMMON NORMALS: no rashes or lesions noted GENERAL SKIN EXAM: no rashes or lesions noted Data : 10/24/19 06:36 10/24/19 06:36 A&P Assessment and plan (1) Vomiting of blood: EGD done today with finding of distal esophagitis. No varices. No PUD. Continue PPI. Started on diet. Continue to encourage alcohol cessation. Discussed with discharge planning to provide options for rehabilitation. Status: Acute Qualifiers: Nausea presence: with nausea Qualified Code(s): K92.0 - Hematemesis Code(s): K92.0 - Hematemesis (2) Alcohol withdrawal: Withdrawal is improving, but still with significant tremor, anxiety. At this time will continue treatment in the hospital as he has to drive an hour and a half by himself to [place] which at this time would not be safe. Monitor for withdrawal, supportive care according to [facility] protocol. Timing, folic acid, multivitamin. Status: Acute Code(s): F10.239 - Alcohol dependence with withdrawal, unspecified Attestations Medical Necessity Statement*: Continue admission for assessment of management of alcohol withdrawal with history of severe withdrawal. Coding Level of Care Code Acute Senior Software Developer for Charles Suggs Diagnoses Vomiting of blood K92.0 Nausea presence: with nausea Alcohol withdrawal F10.239
[2019-10-24] MEDS: perphenazine 4 mg Tablet 12 MG PO (21:59)
[2019-10-25] VITALS (7 sets, daily range): BP systolic 121–138; BP diastolic 68–97; PULSE 69–112; RESP 18–20; TEMP 36.5–37.2; O2SAT 95–97
[2019-10-25 01:52] LABS: Basophils % 0.4 %; Eosinophils # 0.2 10^3/uL (0.0-0.8); Eosinophils % 1.8 %; Hematocrit 35.7 % (42.0-52.0); Hemoglobin 11.6 g/dL (11.7-16.6); Lymphocytes # 1.8 10^3/uL (0.8-4.8); Lymphocytes % 22.2 %; Mean Corpuscular HGB Conc 32.5 g/dL (30.0-36.0); Mean Corpuscular Hemoglobin 27.4 pg (28.0-34.0); Mean Corpuscular Volume 84.2 fL (80-94); Mean Platelet Volume 10.2 fL (7.4-10.4); Monocytes # 0.4 10^3/uL (0.2-0.9); Monocytes % 5.1 %; Neutrophils # 5.7 10^3/uL (1.8-7.7); Neutrophils % 70.3 %; Nucleated Red Blood Cells % 0 %; Platelet Count 172 10^3/cmm (130-400); Red Blood Count 4.24 10^6/uL (4.1-5.3); White Blood Count 8.1 10^3/uL (4.0-10.0)
[2019-10-25 02:09] LABS: Alanine Aminotransferase 17 U/L (0-41); Albumin Level 3.7 g/dL (3.5-5.2); Alkaline Phosphatase 100 IU/L (40-130); Anion Gap 16.6 (5-19); Aspartate Amino Transferase 18 U/L (0-40); Blood Urea Nitrogen 17 mg/dL (6-20); Calcium 9.5 mg/dL (8.5-10.5); Carbon Dioxide 27 mmol/L (22-29); Chloride 97 mmol/L (98-107); Globulin 3.2 g/dL (1.3-4.6); Glomerular Filtration Rate 96.6 mL/min (90-130); Glucose 98 mg/dL (65-115); Osmolality Calculated 280 mOsm/kg (285-295); Potassium 3.6 mmol/L (3.5-5.1); Sodium 137 mmol/L (136-145); Total Bilirubin 0.6 mg/dL (0.15-1.2); Total Protein 6.9 g/dL (6.6-8.7)
[2019-10-25] MEDS: sodium chloride 0.9% 1,000 ML 100 ML IV (02:31)
[2019-10-25] MEDS: BuSPIRONE 10 mg Tablet PO (04:32)
[2019-10-25] MEDS: lisinopril 10 mg Tablet PO (10:09)
[2019-10-25] MEDS: thiamine 100 mg Tablet PO (10:10)
[2019-10-25] MEDS: sertraline 100 mg Tablet PO (10:10)
[2019-10-25] MEDS: nicotine 21 mg Patch 1 PATCH TRANSDERMA (10:10)
--- NOTE | 2019-10-25 11:08 | P.DS_ITS ---
Discharge Providers Date of Admission: 10/24/19 21:05 Date of Discharge: October 25, 2019 Attending Provider at Admission: Carrington Schaffer Attending Provider at Discharge: Carrington Schaffer Diagnoses at Discharge Discharge Diagnosis (1) Vomiting of blood: Status: Acute Qualifiers: Nausea presence: with nausea Qualified Code(s): K92.0 - Hematemesis (2) Alcohol withdrawal: Status: Acute Reason for Visit Reason for Visit: Reason For Visit: SICK, NAUSEA, VOMIT X 2 DAYS Hospital Course Hospital Course: Pleasant 34-year-old gentleman was admitted and treated for alcohol withdrawal, on presentation with multiple episodes of vomiting, and with noted blood streaking, concern for hematemesis was assessed by EGD, with finding of distal esophagitis, without any varices or PUD. His withdrawal has improved. Alcohol cessation and smoke cessation have been discussed extensively, and he states that he has a plan, and is following up with rehabilitation services in his town. At this time his PPI dose is increased to omeprazole 40 mg twice daily. He is feeling much better, and ready to return home. As he is still having some anxiety and mild tremor, discussed with him whether someone could help him get a ride home, he stated that no, but he will stay in a motel prior to driving home back to [place]. Physical Exam Const: COMMON NORMALS: no apparent distress and oriented x3 GENERAL APPEARANCE: anxious (But pleasant and cooperative. Lucid.) OTHER: Very mild tremor. He is awake, alert, pleasant, conversant. Lucid. Minimal if any anxiety. HENMT: COMMON NORMALS: oropharynx normal Neck/C-Spine: COMMON NORMALS: no JVD Resp: COMMON NORMALS: normal respiratory effort and clear to auscultation bilaterally AUSCULTATION: clear to auscultation bilaterally Cardio: COMMON NORMALS: no JVD, regular rhythm, S1 normal heart sound, S2 normal heart sound and no murmurs RHYTHM: regular rhythm HEART SOUNDS: S1 normal and S2 normal GI: COMMON NORMALS: normal to inspection, nondistended, normoactive bowel sounds, soft to palpation and non-tender PALPATION: Yes soft Extremity: COMMON NORMALS: no joint enlargement and no pedal edema Neuro: COMMON NORMALS: oriented x3 and moves all extremities Skin: COMMON NORMALS: no rashes or lesions noted GENERAL SKIN EXAM: no rashes or lesions noted Discharge Data Data Completed and Pending: Completed Studies During Hospitalization Category Date Time Status CT abdomen pelvis w con* [id number] Urge nt Cat Scan 10/23/19 11:12 Completed Pending at discharge Category Date Time Status Complete Blood Co unt w/Auto AM LABS Lab 10/26/19 04:00 Ordered Complete Blood Co unt w/Auto AM LABS Lab 10/27/19 04:00 Ordered Comprehensive Met abolic Panel AM LA BS Lab 10/26/19 04:00 Ordered Comprehensive Met abolic Panel AM LA BS Lab 10/27/19 04:00 Ordered Labs from last 24 hours 10/25/19 10/25/19 01:45 01:45 WBC 8.1 RBC 4.24 Hgb 11.6 L Hct 35.7 L MCV 84.2 D MCH 27.4 L MCHC 32.5 RDW 13.0 Plt Count 172 MPV 10.2 Neut % (Auto) 70.3 Lymph % (Auto) 22.2 [place] % (Auto) 5.1 Eos % (Auto) 1.8 Baso % (Auto) 0.4 Neut # (Auto) 5.7 Lymph # (Auto) 1.8 [place] # (Auto) 0.4 Eos # (Auto) 0.2 Baso # (Auto) 0.0 Nucleated RBC % (a uto) 0 Nucleated RBCs # 0.0 Sodium 137 Potassium 3.6 Chloride 97 L Carbon Dioxide 27 Anion Gap 16.6 BUN 17 Creatinine 0.9 GFR Calculation 96.6 Glucose 98 Calculated Osmolal ity 280 L Calcium 9.5 Total Bilirubin 0.6 AST 18 ALT 17 Alkaline Phosphata se 100 Total Protein 6.9 Albumin 3.7 Globulin 3.2 Vitals: Last Vital Signs Temp 98.9 F 10/25/19 07:46 Pulse 95 10/25/19 08:43 Resp 18 10/25/19 08:43 BP 125/68 10/25/19 07:46 Pulse Ox 95 10/25/19 08:43 Discharge Plan Discharge Patient Disposition: Home, Self-Care Condition: Stable Prescriptions: New thiamine mononitrate (vit B1) [Vitamin B-1 (mononitrate)] 100 mg Tablet 100 mg PO DAILY Qty: 30 RF: 0 nicotine 21 mg/24 hr Patch 24 Hour 1 patch transdermal DAILY Qty: 30 RF: 0 folic acid 1 mg tablet 1 mg PO DAILY Qty: 30 RF: 0 Continued sertraline [Zoloft] 100 mg tablet 100 mg PO DAILY RF: 0 lisinopril 10 mg tablet 10 mg PO DAILY RF: 0 buspirone 10 mg tablet 10 mg PO BID PRN (Reason: Anxiety) RF: 0 albuterol sulfate [ProAir HFA] 90 mcg/actuation HFA aerosol inhaler 2 inh INHALATION Q4H PRN (Reason: Shortness Of Breath) RF: 0 Multiple Vitamins Tablet 1 tab PO DAILY RF: 0 naltrexone 50 mg tablet 50 mg PO DAILY RF: 0 perphenazine 4 mg tablet 12 mg PO BEDTIME RF: 0 Pepto-Bismol To-Go 262 mg Tablet,Chewable See Rx Instructions .ROUTE .COMPLEX RF: 0 Changed omeprazole 20 mg capsule,delayed release(DR/EC) 40 mg PO BID Qty: 120 RF: 0 Discharge Orders: Discharge Order (Routine); Ordered 10/25/19 Ordered By: Carrington Schaffer Referrals: Primary, provider [Other] - 4-7 days Discharge Diet: GI Soft Discharge Activity: Increase activity as tolerated Activity Restrictions/Additional Instructions: Please abstain from any alcohol as it may worsen your esophagitis, in addition to other chronic completions as discussed. Please stop smoking. Please continue follow-up with rehabilitation services in your town. Please never drive under influenza or if you are going through withdrawal. Discharge Attestations Time Spent in Discharge Care*: greater than 30 min Quality Metrics Clinical Quality Measures During this hospital stay, did patient experience: None Coding Level of Care Code Acute Perforating Machine Operator for Charles Fwradha Diagnoses Vomiting of blood K92.0 Nausea presence: with nausea Alcohol withdrawal F10.239
--- NOTE | 2019-10-25 11:51 | PC.NURSE ---
Discharge note Discharge instructions given per physician orders. New meds with side effects taught. Patient verbalized understanding. Iv removed with catheter intact. Pressure dressing applied. Patient tolerated well.
== END 2019-10-25 12:10 | disposition home or self-care (01) | DRG 378 ==
LOC: ER 14:30 → MEDSURG 14:40
PROVIDERS: Surgery; Admitting Provider Internal Medicine; Emergency Provider Emergency Medicine; Visit Provider Internal Medicine
PROC: 0DJ08ZZ Inspection of Upper Intestinal Tract, Via Natural or Artificial Opening Endoscopic (ICD-10-PCS; CPT 43235; principal; 2019-10-24 10:45)
DX: K92.0 Hematemesis (principal); F10.239 Alcohol dependence with withdrawal, unspecified; Z79.899 Other long term (current) drug therapy; Z88.0 Allergy status to penicillin; K21.9 Gastro-esophageal reflux disease without esophagitis; F41.9 Anxiety disorder, unspecified; I10 Essential (primary) hypertension; F32.9 Major depressive disorder, single episode, unspecified; F17.210 Nicotine dependence, cigarettes, uncomplicated; F17.220 Nicotine dependence, chewing tobacco, uncomplicated
CPT/HCPCS: 12345; 36415; 36600; 43235; 74177; 80053; 80307; 81001; 82009; 82550; 82803; 83690; 83735; 85025; 85610; 85730; 93005; 96372; 96375; 99283; A9270; C9113; G0378; J2060; J2405; J2704; J3010; J3411; J3490; J7030; J7050; Q0175; Q9967